=== PATIENT | female | born 1960 | race African-American/Black ===

== ENCOUNTER 2022-04-06 13:52 | Emergency (ER) | payer BC ==
[~2022-04-06] VITALS: Ht 162.6 cm; Wt 81.6 kg
[~2022-04-06 13:52] MED LIST: ADVAIR 500/501 EA; LISINOPRIL; METFORMIN HCL500 MG; SIMVASTATIN; XOPENEX
== END 2022-04-06 17:06 | disposition home or self-care (01) ==
LOC: ER 15:13
DX: R51.9 Headache, unspecified (principal); J01.00 Acute maxillary sinusitis, unspecified; E11.9 Type 2 diabetes mellitus without complications; Z20.822 Contact with and (suspected) exposure to COVID-19
CPT/HCPCS: 71045; 99283; U0002

== ENCOUNTER 2022-12-31 06:35 | Emergency (ER) | payer OTHER, BC ==
[~2022-12-31] VITALS: Ht 162.6 cm; Wt 81.6 kg
== END 2022-12-31 08:51 | disposition home or self-care (01) ==
LOC: ER 06:39
DX: S00.83XA Contusion of other part of head, initial encounter (principal); W10.8XXA Fall (on) (from) other stairs and steps, initial encounter; Y93.01 Activity, walking, marching and hiking; Y92.39 Other specified sports and athletic area as the place of occurrence of the external cause; E11.9 Type 2 diabetes mellitus without complications
CPT/HCPCS: 70450; 72125; 99283